=== PATIENT | female | born 1945 | race Caucasian/White ===

== ENCOUNTER 2022-11-12 13:15 | Inpatient (IN) | payer MEDICARE, OTHER ==
[~2022-11-12] VITALS: Ht 157 cm; Wt 62.1 kg
[2022-11-12] MEDS ORDERED: fentaNYL INJ 100 MCG/2 ML AMP IVP STA (13:56)
[2022-11-12] MEDS ORDERED: ONDANSETRON 4 MG/2 ML (SDV) Z0FRAN IVP ONE (14:00)
[2022-11-12] MEDS ORDERED: NS IV 500 ML 500 ML IV ONE (14:00)
--- NOTE | 2022-11-12 14:09 | ED General ---
General Chief Complaint: - Reproductive Stated Complaint: UNABLE TO URINATE Nursing Triage Note: pt presents to ed via pov from home with complaints of posterior back/flank pain x 2 days. pt reports she feels like her bladder is full but she is unable to urinate. 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 Source of Information: Patient Exam Limitations: No Limitations History of Present Illness Date Seen by Provider: Nov 12, 2022 Time Seen by Provider: 13:30 Initial Comments Here with report of difficulty with urination. She wears adult briefs due to incontinence. Noted that she had little dribbles of urine over the past 2 days but not much else. Does have history of kidney disease. Apparently she went to [facility] ER this morning and had waited several hours without help and so left there and came here. She denies fever. Reports that she has drink at least 4 to 6 cups water today. States that she feels like her bladder is very full but she cannot urinate. Does have history of rectal cancer with surgical removal of her entire colon and ileostomy placed right side mid abdomen. No report of fevers. She is concerned about the kidney disease and is ins ignificant pain to the low abdomen in the suprapubic region. Timing/Duration: 2-3 Days Severity: Moderate, Severe Associated Systoms: No Chest Pain, No Cough, No Fever/Chills; Nausea/Vomiting; No Shortness of Air, No Weakness Allergies and Home Medications Allergies Coded Allergies: No Known Drug Allergies (Unverified , 11/12/22) Patient Home Medication List Home Medication List Reviewed: Yes Review of Systems Review of Systems Constitutional: see HPI; No chills, No fever EENTM: no symptoms reported Respiratory: No cough, No short of breath Cardiovascular: No chest pain, No palpitations Gastrointestinal: abdominal pain, nausea, vomiting Genitourinary: decreased output, pain Musculoskeletal: back pain; No muscle pain Skin: No lesions, No rash Past Ahersli-Bsukzj-Dadqox Hx Patient Social History Tobacco Use?: No Substance use?: No Alcohol Use?: No Pt feels they are or have been: No Past Medical History Surgery/Hospitalization HX: pmh:hypothyroid, kidney failure, osteopenia, stage 3 kidney disease, ileostomy-colon ca Surgeries: Yes Abdominal, Appendectomy, Gallbladder, Hysterectomy, Oophorectomy Respiratory: No Cardiac: Yes Genitourinary: Yes Renal Failure Endocrine: Yes Hypothyroidsim, Diabetes, Non-Insulin dep Family Medical History No Pertinent Family Hx Physical Exam Vital Signs Vital Signs - First Documented 11/12/22 13:28 Temp 35.6 Pulse 88 Resp 18 B/P (MAP) 113/91 (98) Pulse Ox 96 Capillary Refill : Less Than 3 Seconds Height, Weight, BMI Height: '" Weight: lbs. oz. kg; 24.00 BMI Method: General Appearance: WD/WN, Mild Distress HEENT: PERRL/EOMI, Pharynx Normal Neck: Non Tender, Supple Respiratory: Lungs Clear, Normal Breath Sounds Cardiovascular: Regular Rate, Rhythm Gastrointestinal: Soft, Distended (Suprapubic); No Guarding, No Rebound; Tenderness (Suprapubic region and very tight there.) Back: Normal Inspection, No CVA Tenderness, No Vertebral Tenderness Extremity: Normal Range of Motion, Non Tender, Pedal Edema (1-2+ to mid tibia bilateral) Neurologic/Psychiatric: Alert, Oriented x3 Skin: Normal Color, Warm/Dry Focused Exam Lactate Level 11/12/22 14:06: Lactic Acid Level 2.78*H Lactic Acid Level Laboratory Tests Test 11/12/22 14:06 Lactic Acid Level 2.78 MMOL/L (0.50-2.00) *H Progress/Results/Core Measures Suspected Sepsis SIRS Temperature: Pulse: 88 Respiratory Rate: 18 Laboratory Tests 11/12/22 14:06: White Blood Count 15.3H Blood Pressure 113 /91 Mean: 98 11/12/22 14:06: Lactic Acid Level 2.78*H Laboratory Tests 11/12/22 14:06: Platelet Count 185 11/12/22 14:36: Creatinine 1.93H, Total Bilirubin 0.8 Results/Orders Lab Results Laboratory Tests Test 11/12/22 13:40 11/12/22 14:06 11/12/22 14:36 Range/Units Urine Color YELLOW Urine Clarity CLEAR Urine pH 6.0 5-9 Urine Specific [place] >=1.030 1.016-1.022 Urine Protein 2+ H NEGATIVE Urine Glucose (UA) 1+ H NEGATIVE Urine Ketones NEGATIVE NEGATIVE Urine Nitrite NEGATIVE NEGATIVE Urine Bilirubin NEGATIVE NEGATIVE Urine Urobilinogen 0.2 < = 1.0 MG/DL Urine Leukocyte Esterase TRACE H NEGATIVE Urine RBC (Auto) 2+ H NEGATIVE Urine RBC 0-2 /HPF Urine WBC 10-25 H /HPF Urine Crystals NONE /LPF Urine Bacteria FEW H /HPF Urine Casts NONE /LPF Urine Mucus NEGATIVE /LPF Urine Culture Indicated YES White Blood Count 15.3 H 4.3-11.0 10^3/uL Red Blood Count 3.92 3.80-5.11 10^6/uL Hemoglobin 12.0 11.5-16.0 g/dL Hematocrit 35 35-52 % Mean Corpuscular Volume 90 80-99 fL Mean Corpuscular Hemoglobin 31 25-34 pg Mean Corpuscular Hemoglobin Concent 34 32-36 g/dL Red Cell Distribution Width 13.2 10.0-14.5 % Platelet Count 185 130-400 10^3/uL Mean Platelet Volume 11.2 9.0-12.2 fL Immature Granulocyte % (Auto) 2 % Neutrophils (%) (Auto) 71 42-75 % Lymphocytes (%) (Auto) 15 12-44 % Monocytes (%) (Auto) 12 0-12 % Eosinophils (%) (Auto) 0 0-10 % Basophils (%) (Auto) 0 0-10 % Neutrophils # (Auto) 10.8 H 1.8-7.8 X 10^3 Lymphocytes # (Auto) 2.3 1.0-4.0 X 10^3 Monocytes # (Auto) 1.8 H 0.0-1.0 X 10^3 Eosinophils # (Auto) 0.1 0.0-0.3 10^3/uL Basophils # (Auto) 0.1 0.0-0.1 10^3/uL Immature Granulocyte # (Auto) 0.3 H 0.0-0.1 10^3/uL Neutrophils % (Manual) 76 % Lymphocytes % (Manual) 16 % Monocytes % (Manual) 3 % Eosinophils % (Manual) 0 % Basophils % (Manual) 0 % Myelocytes % 2 % Band Neutrophils 3 % Blood Morphology Comment NORMAL Lactic Acid Level 2.78 *H 0.50-2.00 MMOL/L Sodium Level 134 L 135-145 MMOL/L Potassium Level 3.7 3.6-5.0 MMOL/L Chloride Level 105 98-107 MMOL/L Carbon Dioxide Level 13 L 21-32 MMOL/L Anion Gap 16 H 5-14 MMOL/L Blood Urea Nitrogen 35 H 7-18 MG/DL Creatinine 1.93 H 0.60-1.30 MG/DL Estimat Glomerular Filtration Rate 27 BUN/Creatinine Ratio 18 Glucose Level 118 H 70-105 MG/DL Calcium Level 9.2 8.5-10.1 MG/DL Corrected Calcium 9.4 8.5-10.1 MG/DL Total Bilirubin 0.8 0.1-1.0 MG/DL Aspartate Amino Transf (AST/SGOT) 25 5-34 U/L Alanine Aminotransferase (ALT/SGPT) 19 0-55 U/L Alkaline Phosphatase 134 40-136 U/L C-Reactive Protein High Sensitivity 17.41 H 0.00-0.50 MG/DL Total Protein 6.9 6.4-8.2 GM/DL Albumin 3.7 3.2-4.5 GM/DL My Orders Orders - VLAD MCLAUGHLIN MD Cbc With Automated Diff (11/12/22 13:56) Comprehensive Metabolic Panel (11/12/22 13:56) Hs C Reactive Protein (11/12/22 13:56) Lactic Acid Analyzer (11/12/22 13:56) Ua Culture If Indicated (11/12/22 13:56) Ed Iv/Invasive Line Start (11/12/22 13:56) Ns Iv 500 Ml (Sodium Chloride 0.9%) (11/12/22 14:00) Fentanyl Inj (Sublimaze Injection) (11/12/22 13:56) Ondansetron Injection (Zofran Injectio (11/12/22 14:00) Blood Culture (11/12/22 13:56) Vital Signs Adult Sepsis Patie Q15M (11/12/22 13:56) Remove Rings In Anticipation O (11/12/22 13:56) Manual Differential (11/12/22 14:06) Urine Culture (11/12/22 13:40) Ceftriaxone Iv/Im (Rocephin Iv/Im) (11/12/22 15:31) Medications Given in ED Current Medications Medications Dose Ordered Sig/Yuly Route Start Time Stop Time Status Last Admin Dose Admin Ondansetron HCl 4 mg ONCE ONCE IVP 11/12/22 14:00 11/12/22 14:01 DC 11/12/22 14:08 4 MG Sodium Chloride 500 ml @ 0 mls/hr Q0M ONCE IV 11/12/22 14:00 11/12/22 14:01 DC 11/12/22 14:08 0 MLS/HR Vital Signs/I&O 11/12/22 13:28 Temp 35.6 Pulse 88 Resp 18 B/P (MAP) 113/91 (98) Pulse Ox 96 Capillary Refill : Less Than 3 Seconds Blood Pressure Mean: 98 Progress Note : Progress Note Seen and evaluated. IV, labs including CBC, CMP, CRP, blood cultures and lactic acid ordered. UA ordered. Normal saline 500 mL bolus, fentanyl 50 mcg IV for pain and Zofran 4 mg IV ordered for pain. Monitor patient. Differential diagnosis includes urinary retention, urinary tract infection, renal failure, electrolyte abnormality, dehydration, intra-abdominal pathology Agarwal catheter placed by nursing. We only got about 10 to 20 mL of output raising concerns for renal failure. Pending labs. Monitor patient. 1535: Patient does have findings concerning for urinary tract infection with sepsis as her white count is 15.3 with 3 bands. CRP is elevated at 17.41. Chemistries show essentially normal electrolytes but elevated serum creatinine with known history of chronic renal dysfunction. Lactic acid is elevated at 2.78 and UA does show findings of urinary tract infection with WBCs and bacteria with trace leuk esterase. No nitrites. She is currently feeling better and is able to take p.o. fluids. I do have concerns secondary to her chronic renal dysfunction and urinary tract infection and the lactic acidosis. Given all of that, admission is indicated. I did discuss the case with Dr. Aguiar, on-call for [facility], and he accepts patient for admission, inpatient status. Rocephin 1 g IV ordered for treatment of urinary tract infection with sepsis. All findings and concerns discussed with patient and family who agree with plan. Departure Communication (Admissions) Time/Spoke to Admitting Phy: 15:35 Impression Primary Impression: Urinary tract infection Qualified Codes: N30.00 - Acute cystitis without hematuria Additional Impressions: Sepsis Qualified Codes: A41.9 - Sepsis, unspecified organism Chronic renal insufficiency Qualified Codes: N18.9 - Chronic kidney disease, unspecified Disposition: ADMITTED INPATIENT Condition: Stable Admissions Decision to Admit Reason: Admit from ER (General) Decision to Admit/Date: Nov 12, 2022 Time/Decision to Admit Time: 15:35 Departure-Patient Inst. Referrals: UNKNOWN (PCP/Family) Primary Care Physician VLAD MCLAUGHLIN MD Nov 12, 2022 14:09
[2022-11-12 14:11] LABS: BASOPHILS # (AUTO) 0.1 10^3/uL (0.0-0.1); BASOPHILS % (AUTO) 0 % (0-10); EOSINOPHILS # (AUTO) 0.1 10^3/uL (0.0-0.3); EOSINOPHILS % (AUTO) 0 % (0-10); HEMATOCRIT 35 % (35-52); LYMPHOCYTES # (AUTO) 2.3 X 10^3 (1.0-4.0); LYMPHOCYTES % (AUTO) 15 % (12-44); MEAN CORPUSCULAR HEMOGLOBIN 31 pg (25-34); MEAN CORPUSCULAR HGB CONC 34 g/dL (32-36); MEAN CORPUSCULAR VOLUME 90 fL (80-99); MEAN PLATELET VOLUME 11.2 fL (9.0-12.2); MONOCYTES # (AUTO) 1.8 X 10^3 (0.0-1.0); MONOCYTES % (AUTO) 12 % (0-12); NEUTROPHILS # (AUTO) 10.8 X 10^3 (1.8-7.8); NEUTROPHILS % (AUTO) 71 % (42-75); PLATELET COUNT 185 10^3/uL (130-400); WHITE BLOOD COUNT 15.3 10^3/uL (4.3-11.0)
[2022-11-12 14:26] LABS: BILIRUBIN,URINE NEGATIVE (NEGATIVE); CLARITY,URINE CLEAR; COLOR,URINE YELLOW; GLUCOSE, URINE (UA) 1+ (NEGATIVE); KETONES,URINE NEGATIVE (NEGATIVE); LEUKOCYTE ESTERASE ,URINE TRACE (NEGATIVE); NITRITE,URINE NEGATIVE (NEGATIVE); PROTEIN,URINE 2+ (NEGATIVE)
[2022-11-12 14:39] LABS: BACTERIA,URINE FEW /HPF; RBC,URINE 0-2 /HPF
[2022-11-12 14:49] LABS: BAND NEUTROPHILS 3 %; BASOPHILS % (MANUAL) 0 %; EOSINOPHILS % (MANUAL) 0 %; LYMPHOCYTES % (MANUAL) 16 %; MONOCYTES % (MANUAL) 3 %; MYELOCYTES % 2 %; NEUTROPHILS % (MANUAL) 76 %; RBC MORPH NORMAL
[2022-11-12 14:55] LABS: ALBUMIN 3.7 GM/DL (3.2-4.5); POTASSIUM 3.7 MMOL/L (3.6-5.0)
[2022-11-12 14:56] LABS: CALCIUM 9.2 MG/DL (8.5-10.1)
[2022-11-12 14:57] LABS: TOTAL PROTEIN 6.9 GM/DL (6.4-8.2)
[2022-11-12 14:59] LABS: BILIRUBIN,TOTAL 0.8 MG/DL (0.1-1.0)
[2022-11-12 15:01] LABS: CREATININE SERUM 1.93 MG/DL (0.60-1.30)
[2022-11-12] MEDS ORDERED: cefTRIAXone IV/IM 1,000 MG in NS (IVPB) 50 ML IV STA (15:31)
[2022-11-12] MEDS ORDERED: fentaNYL INJ 100 MCG/2 ML AMP IV PRN (17:00)
[2022-11-12] MEDS ORDERED: ONDANSETRON 4 MG/2 ML (SDV) Z0FRAN IV PRN (17:00)
[2022-11-12] MEDS ORDERED: cefTRIAXone 1 GM/NS 50 ML IVPB IV SCH ×2 (17:00)
[2022-11-12] MEDS ORDERED: ACETAMINOPHEN 500 MG TAB (TYLENOL) PO PRN (17:00)
[2022-11-12] MEDS ORDERED: ROSU10TA28 PO (17:38)
[2022-11-12] MEDS ORDERED: ASPI-999 PO (17:38)
[2022-11-12] MEDS ORDERED: LEVO100T7 PO (17:38)
[2022-11-12] MEDS ORDERED: DAPA10TA PO (17:38)
[2022-11-12] MEDS ORDERED: MIRT-68 PO (17:39)
[2022-11-12] MEDS ORDERED: TRZ50T PO (17:39)
[2022-11-12] MEDS ORDERED: DIAZ10TA3 PO (17:39)
[2022-11-12] MEDS: NS IV 1000 ML 1,000 ML IV SCH (17:43)
[2022-11-12 20:59] VITALS: BP 120/67
[2022-11-12] MEDS ORDERED: MELATONIN 3 MG TABLET PO SCH (21:00)
[2022-11-12 23:17] VITALS: BP 118/55
[2022-11-13 03:58] VITALS: BP 116/56
[2022-11-13] MEDS: NS IV 1000 ML 1,000 ML IV SCH (05:34)
[2022-11-13 05:51] LABS: BASOPHILS % (AUTO) 0 % (0-10); EOSINOPHILS # (AUTO) 0.2 10^3/uL (0.0-0.3); EOSINOPHILS % (AUTO) 1 % (0-10); HEMATOCRIT 27 % (35-52); HEMOGLOBIN 9.2 g/dL (11.5-16.0); LYMPHOCYTES # (AUTO) 1.3 10^3/uL (1.0-4.0); LYMPHOCYTES % (AUTO) 13 % (12-44); MEAN CORPUSCULAR HEMOGLOBIN 31 pg (25-34); MEAN CORPUSCULAR HGB CONC 34 g/dL (32-36); MEAN CORPUSCULAR VOLUME 91 fL (80-99); MONOCYTES # (AUTO) 1.4 10^3/uL (0.0-1.0); MONOCYTES % (AUTO) 14 % (0-12); NEUTROPHILS # (AUTO) 7.4 10^3/uL (1.8-7.8); NEUTROPHILS % (AUTO) 71 % (42-75); PLATELET COUNT 152 10^3/uL (130-400); WHITE BLOOD COUNT 10.5 10^3/uL (4.3-11.0)
[2022-11-13 06:14] LABS: BILIRUBIN,DIRECT 0.3 MG/DL (0.0-0.3); BILIRUBIN,INDIRECT 0.2 MG/DL; BILIRUBIN,TOTAL 0.5 MG/DL (0.1-1.0); CALCIUM 8.4 MG/DL (8.5-10.1); CREATININE SERUM 1.48 MG/DL (0.60-1.30); POTASSIUM 3.6 MMOL/L (3.6-5.0); TOTAL PROTEIN 5.7 GM/DL (6.4-8.2)
[2022-11-13 07:29] VITALS: BP 122/60
[2022-11-13] MEDS ORDERED: CEFD300C3 PO (10:43)
--- NOTE | 2022-11-13 10:51 | Occupational Therapy Eval ---
OT Evaluation-General/PLF Medical Diagnosis Admission Date Nov 12, 2022 at 16:26 Medical Diagnosis: UTI/Sepsis Onset Date: Nov 12, 2022 Therapy Diagnosis Therapy Diagnosis: weakness Precautions Precautions/Isolations: Fall Prevention, Standard Precautions Weight Bear Status Weight Bearing Restriction: Full Weight Bearing Referral Referral Reason: Activity Tolerance, Self Care, Evaluation/Treatment, Strengthening/ROM Medical History Current History Here with report of difficulty with urination. She wears adult briefs due to incontinence. Noted that she had little dribbles of urine over the past 2 days but not much else. Does have history of kidney disease. Apparently she went to [facility] ER this morning and had waited several hours without help and so left there and came here. She denies fever. Reports that she has drink at least 4 to 6 cups water today. States that she feels like her bladder is very full but she cannot urinate. Does have history of rectal cancer with surgical removal of her entire colon and ileostomy placed right side mid abdomen. No report of fevers. She is concerned about the kidney disease and is i nsignificant pain to the low abdomen in the suprapubic region Social History Home: Single Level Current Living Status: Spouse Entry Into Home: Stairs With Railing ADL-Prior Level of Function SCALE: Activities may be completed with or without assistive devices. 5-Ebshvuebha-emopgsu completes the activity by him/herself with no assistance from a helper. 5-Set-up or Clean-up Assistance-helper sets up or cleans up; patient completes activity. [place] assists only prior to or following the activity. 4-Supervision or Touching Assistance-helper provides verbal cues and/or touching/steadying and/or contact guard assistance as patient completes activit y. Assistance may be provided throughout the activity or intermittently. 3-Partial/Moderate Assistance-helper does LESS THAN HALF the effort. [place] lifts, holds or supports trunk or limbs, but provides less than half the effort. 2-Substantial/Maximal Assistance-helper does MORE THAN HALF the effort. [place] lifts or holds trunk or limbs and provides more than half the effort. 4-Hmjlnyhxq-rfpkpr does ALL the effort. Patient does none of the effort to complete the activity. Or, the assistance of 2 or more helpers is required for the patient to complete the activity. If activity was not attempted, code reason: 7-Patient Refused. 9-Not Applicable-not attempted and the patient did not perform the activity before the current illness, exacerbation or injury. 10-Not Attempted due to Environmental Limitations-(lack of equipment, weather restraints, etc.). 88-Not Attempted due to Medical Conditions or Safety Concerns. 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 Drive Self: Yes OT Current Status Subjective Agreeable to therapy, eager to go home Pain Numeric Pain Scale: 0-No Pain Mental Status/Objective Patient Orientation: Person, Place, Time, Situation Attachments: IV (patient request Therapy remove IV, therapy reports nursing will address IV) Current Glasses/Contacts: Yes Upper Extremity ROM LUE old injury limited ROM, spouse reports he pulls on patient to assist her out of bed at home, OT provided safe instruction for out of bed and entry to reduce pain and reduce injury.spouse and patient are minimally receptive to education Upper Extremity Strength RUE -4/5, LUE -3/5 ADL-Treatment Eating (QC): 6 Oral Hygiene (QC): 6 Shower/Bathe Self (QC): 7 (declined) Upper Body Dressing (QC): 6 Lower Body Dressing (QC): 5 On/Off Footwear (QC): 5 Toileting Hygiene (QC): 6 Patient and spouse report assistance to transfer in /out of shower, ambulation assistance on outdoor ground Education OT Patient Education: Energy conservation, Instructions to caregiver, Modified ADL techniques, Progress toward Goal/Update tx plan, Purpose of tx/functional activities, Reviewed precautions, Rehab process, Safety issues, Transfer techniques, Use of adapted equipment Teaching Recipient: Patient, Family Teaching Methods: Demonstration, Discussion Response to Teaching: Verbalize Understanding (however does not receive information and education well), Reinforcement Needed OT Senior Living Goals Senior Living Goals 1=Demonstrate adherence to instructed precautions during ADL tasks. 2=Patient will verbalize/demonstrate understanding of assistive devices/modifications for ADL. 3=Patient will improve strength/tolerance for activity to enable patient to perform ADL's. OT Education/Plan Problem List/Assessment Assessment: Decreased UE Strength, Impaired Self-Care Skills, Restricted Funct UE ROM Discharge Recommendations Plan/Recommendations: Discontinue OT Therapy Discharge Recommendati: Other, See Comments (EVAL ONLY) Patient/Family Goals Patient wishes to expedite DC home. Treatment Plan/Plan of Care Treatment,Training & Education: Yes Patient would benefit from OT for education, treatment and training to promote independence in ADL's, mobility, safety and/or upper extremity function for ADL's. Plan of Care: OTHER (EVAL ONLY) Treatment Duration: Nov 13, 2022 Frequency: 1 time per week Estimated Hrs Per Day: .25 hour per day Time Start Time: 10:20 Stop Time: 10:43 DATE: Nov 13, 2022 Total Time Billed (hr/min): 23 Billed Treatment Time RICHARD, FA 23 min ELENI NEWMAN OT Nov 13, 2022 10:51
[2022-11-13] MEDS ORDERED: MELA5TAB14 PO (10:53)
[2022-11-13] MEDS ORDERED: FLUO40CA PO (10:53)
[2022-11-13] MEDS ORDERED: FLUT16SP22 NSEACH (10:53)
[2022-11-13] MEDS ORDERED: ENOXAPARIN 40 MG/0.4 ML (LOVENOX) SYR SC SCH (11:00)
[2022-11-13 11:14] VITALS: BP 141/64
--- NOTE | 2022-11-13 11:27 | Physical Therapy Evaluation ---
PT Evaluation-General Medical Diagnosis Admission Date Nov 12, 2022 at 16:26 Medical Diagnosis: UTI/sepsis Onset Date: Nov 12, 2022 Therapy Diagnosis Therapy Diagnosis: debility/weakness Precautions Precautions/Isolations: Fall Prevention, Standard Precautions Referral Physician: Mario Reason for Referral: Evaluation/Treatment Medical History Pertinent Medical History: DM, Hypothroidism, Renal Insufficiency Additional Medical History rectal cancer Current History ER secondary to right flank and back pain x 2 days Reviewed History: Yes Social History Home: Single Level Current Living Status: Spouse Entry Into Home: Stairs With Railing PT Steps Into Home: 3 Prior Prior Level of Function SCALE: Activities may be completed with or without assistive devices. 6-Thhrokzohk-nvtuttf completes the activity by him/herself with no assistance from a helper. 5-Set-up or Clean-up Assistance-helper sets up or cleans up; patient completes activity. [place] assists only prior to or following the activity. 4-Supervision or Touching Assistance-helper provides verbal cues and/or touching/steadying and/or contact guard assistance as patient completes activity. Assistance may be provided throughout the activity or intermittently. 3-Partial/Moderate Assistance-helper does LESS THAN HALF the effort. [place] lifts, holds or supports trunk or limbs, but provides less than half the effort. 2-Substantial/Maximal Assistance-helper does MORE THAN HALF the effort. [place] lifts or holds trunk or limbs and provides more than half the effort. 7-Wwurmgvsu-kkzmui does ALL the effort. Patient does none of the effort to complete the activity. Or, the assistance of 2 or more helpers is required for the patient to complete the activity. If activity was not attempted, code reason: 7-Patient Refused. 9-Not Applicable-not attempted and the patient did not perform the activity before the current illness, exacerbation or injury. 10-Not Attempted due to Environmental Limitations-(lack of equipment, weather restraints, etc.). 88-Not Attempted due to Medical Conditions or Safety Concerns. Bed Mobility: 3 Transfers (B,C,W/C): 4 Gait: 4 Stairs: 4 Indoor Mobility (Ambulation): Needed Some Help Prior Devices Use: Walker PT Evaluation-Current Subjective Patient agrees to PT. Spouse present. Objective Patient Orientation: Person, Time, Situation ROM/Strength ROM Lower Extremities bilateral LE all planes Strength Lower Extremities 3/5 grossly bilateral LE Integumentary/Posture Bowel Incontinence: No Bladder Incontinence: No Posture WFL Neuromuscular (Tone, Coordination, Reflexes) grossly intact Sensory Vision: Wears Glasses Transfers Lying to Sitting/Side of Bed(Q: 3 Sit to Stand (QC): 3 Chair/Wbs-ou-Iaaus Xfer(QC): 3 Gait Mode of Locomotion: Walk Anticipated Mode of Locomotion: Walk Walk 10 feet (QC): 4 Walk 50 ft with 2 Turns(QC): 4 Walk 150 ft (QC): 4 Distance: 300' Gait Assistive Device: FWW Comments/Gait Description CGA for safety Balance Sitting Static: Normal Sitting Dynamic: Normal Standing Static: Fair Standing Dynamic: Fair Assessment/Needs Patient will benefit from skilled PT to address functional strength and mobility to improve current LOF to safely return to home with spouse assist. Patient currently requires CGA for safety with all mobility. Rehab Potential: Fair PT Nursing Home Goals Crimper Assembler Goals PT Crimper Assembler Goals Time Frame: Nov 25, 2022 Roll Left & Right (QC): 4 Sit to Lying (QC): 4 Lying-Sitting on Side/Bed(QC): 4 Sit to Stand (QC): 4 Chair/Gte-nj-Bfdjk Xfer(QC): 4 Toilet Transfer (QC): 4 Walk 10 feet (QC): 4 Walk 50ft with 2 Turns (QC): 4 Walk 150 ft (QC): 4 PT Plan Problem List Problem List: Activity Tolerance, Functional Strength, Safety, Balance, Gait, Transfer, Bed Mobility Treatment/Plan Treatment Plan: Continue Plan of Care Treatment Plan: Bed Mobility, Education, Functional Activity Arely, Functional Strength, Gait, Safety, Therapeutic Exercise, Transfers Treatment Duration: Nov 25, 2022 Frequency: 6 times per week Estimated Hrs Per Day: .25 hour per day Patient and/or Family Agrees t: Yes Time Time In: 1055 Time Out: 1105 DATE: Nov 13, 2022 Total Billed Treatment Time: 10 Total Billed Treatment 1 visit EVModC 10 min CYNTHIA HOGAN PT Nov 13, 2022 11:27
--- NOTE | 2022-11-13 11:32 | Short Stay Summary-Hospitalist ---
MITALI DURAN 11/13/22 1132: History of Present Illness HPI/Chief Complaint This patient is a 77 year old female with medical history significant for CKD stage 3, DM type 2, osteopenia, hypothyroidism, and Hx of colon cancer w/ total colectomy and ileostomy who presented to the ED 11/12 for suprapubic pain and difficulty urinating. This had been ongoing for 2 days prior to presenting to the ED. In the ED she met severe sepsis criteria with leukocytosis (15.3), Lactic Acidosis (2.78), Cr 1.93, Urinalysis significna tfor Leuk's, RBC, WBC, and few bacteria. A patel catheter was placed and Ceftriaxone 1g IV Q24 was initiated and patient was admitted to the hospital. When seen this morning, her condition had improved signicantly. Her leukocytosis and Lactic acidosis had resolved. Her Cr had improved to 1.48 from 1.93. Cultures are pending. The pat ient reports feeling well and denies suprapubic pain. She was eager to get the catheter removed today. Source: patient Exam Limitations: no limitations Date Seen 11/13/22 Time Seen by a Provider: 08:25 Attending Physician No,Local Physician PCP Admitting Physician: Valdo Aguiar MD Attending Physician: Sanjeev Reilly DO Referring Physician Date of Admission Nov 12, 2022 at 16:26 Home Medications & Allergies Home Medications Reviewed patient Home Medication Reconciliation performed by pharmacy medication reconciliations sound technician supervisor and/or nursing. Patients Allergies have been reviewed. Allergies Allergies Coded Allergies No Known Drug Allergies (Unverified11/12/22) Past Medical/Social/Family Hx Patient Social History Marrital Status: Tobacco Use?: No Substance use?: No Alcohol Use?: No Pt stated abuse/neglect: No Immunizations Up To Date Influenza Vaccine Up-to-Date: Yes; Up-to-Date Current Status status: No Advance Directives: No Communicates: Verbally Primary Language: Mozambican Preferred Spoken Language: Mozambican Is interpretation needed?: No Implanted or Applied Medical D: Orthopedic hardware (Right shoulder and hip) Past Medical History Hypothyroidism, CKD Stage 3, Hx Colon cancer post colectomy and ileostomy, ostepenia, DM type 2 Family Medical History Family Hx: No pertinent family history Review of Systems Constitutional: No chills, No fever EENTM: no symptoms reported Respiratory: No cough, No dyspnea on exertion Cardiovascular: No chest pain, No palpitations Gastrointestinal: other (Suprapubic pain improved) Genitourinary: decreased output, dysuria : No Musculoskeletal: back pain Skin: no symptoms reported Psychiatric/Neurological: No Symptoms Reported Physical Exam Physical Exam Vital Signs Vital Signs - First Documented 11/12/22 11/12/22 13:28 19:34 Temp 35.6 Pulse 88 Resp 18 B/P (MAP) 113/91 (98) Pulse Ox 96 O2 Delivery Room Air Capillary Refill : Less Than 3 Seconds Height, Weight, BMI Height: '" Weight: lbs. oz. kg; 25.19 BMI Method: General Appearance: WD/WN, Mild Distress HEENT: PERRL/EOMI, Pharynx Normal Neck: Non Tender, Supple Respiratory: Lungs Clear, Normal Breath Sounds Cardiovascular: Regular Rate, Rhythm, No Murmur, Normal Peripheral Pulses Gastrointestinal: Soft; No Distended, No Rebound; Tenderness (mild suprapubic tenderness) Back: Normal Inspection, No CVA Tenderness, No Vertebral Tenderness Extremity: Normal Range of Motion, Non Tender, Pedal Edema (1-2+ to mid tibia bilateral) Neurologic/Psychiatric: Alert, Oriented x3 Skin: Normal Color, Warm/Dry Results Results/Procedures Labs Laboratory Tests 11/12/22 14:06 11/12/22 14:36 11/13/22 05:30 Patient resulted labs reviewed. Short Stay Diagnosis Discharge Diagnosis-Short Stay Admission Diagnosis Severe Sepsis Second to UTI Final Discharge Diagnosis Severe Sepsis 2nd to UTI DM type 2 Hx colon cancer w/ ilesostomy s/p total colectomy Hypothyroidism Depression Anxiety Conclusion Plan -Will convert Ceftriaxone to oral abx to take in the outpatient setting. Remove catheter. -Continue home medications -Follow up with PCP. nd notify them if symptoms fail to improve or acutely worsen despite abx. SANJEEV REILLY DO 11/14/22 0456: Past Medical/Social/Family Hx Patient Social History Marrital Status: Employed/Student: retired Review of Systems Constitutional: see HPI Physical Exam Physical Exam General Appearance: No Apparent Distress, WD/WN, Anxious Eyes: Bilateral Eye Normal Inspection, Bilateral Eye PERRL HEENT: PERRL/EOMI, Normal ENT Inspection, Pharynx Normal Neck: Full Range of Motion, Normal Inspection, Non Tender, Supple, Carotid Bruit Respiratory: Chest Non Tender, Lungs Clear, Normal Breath Sounds, No Accessory Muscle Use, No Respiratory Distress Cardiovascular: Regular Rate, Rhythm, No Edema, No Gallop, No JVD, No Murmur, Normal Peripheral Pulses Gastrointestinal: Normal Bowel Sounds, No Organomegaly, No Pulsatile Mass, Non Tender, Soft Back: Normal Inspection, No CVA Tenderness, No Vertebral Tenderness Extremity: Normal Capillary Refill, Normal Inspection, Normal Range of Motion, Non Tender, No Calf Tenderness, No Pedal Edema Neurologic/Psychiatric: Alert, Oriented x3, No Motor/Sensory Deficits, Normal Mood/Affect Skin: Normal Color, Warm/Dry Lymphatic: No Adenopathy Supervisory-Addendum Brief Verification & Attestation Participated in pt care: history, MDM, physical Personally performed: exam, history, MDM, supervision of care Care discussed with: Medical Student Procedures: n/a Results interpretation: Verified all documentation Verification and Attestation of Medical Student E/M Service A medical student performed and documented this service in my presence. I reviewed and verified all information documented by the medical student and made modifications to such information, when appropriate. I personally performed the physical exam and medical decision making. Sanjeev Reilly Nov 14, 2022,04:55 MITALI DURAN Nov 13, 2022 11:32 SANJEEV REILLY DO Nov 14, 2022 04:56
[2022-11-13 12:30] VITALS: BP 141/64
== END 2022-11-13 12:30 | disposition home or self-care (01) | DRG 872 ==
LOC: EDUNIT# 13:15 → ER 13:18 → 4TH 16:26
PROVIDERS: ADMIT Internal Medicine; ATTEND Internal Medicine
DX: A41.9 Sepsis, unspecified organism (principal); N39.0 Urinary tract infection, site not specified; R65.20 Severe sepsis without septic shock; E11.22 Type 2 diabetes mellitus with diabetic chronic kidney disease; Z85.038 Personal history of other malignant neoplasm of large intestine; Z90.49 Acquired absence of other specified parts of digestive tract; E03.9 Hypothyroidism, unspecified; F41.9 Anxiety disorder, unspecified; F32.A Depression, unspecified; Z93.2 Ileostomy status; N18.30 Chronic kidney disease, stage 3 unspecified
CPT/HCPCS: 36415; 80048; 80053; 80076; 81000; 83605; 85007; 85025; 85027; 86141; 87040; 87077; 87088; 87186

== ENCOUNTER → 2023-01-29 | Outpatient (CLI) | payer MEDICARE, OTHER ==
[~2023-01-29] MED LIST: ASPI-999 PO; CEFD300C3 PO; DAPA10TA PO; DIAZ10TA3 PO; FLUO40CA PO; FLUT16SP22 NSEACH; LEVO100T7 PO; MELA5TAB14 PO; MIRT-68 PO; ROSU10TA28 PO; TRZ50T PO
--- NOTE | 2023-01-29 11:05 | Diagnostic Imaging Report ---
PROCEDURE: US Renal Bilateral. TECHNIQUE: Multiple real-time grayscale images were obtained over the kidneys in various projections bilaterally. INDICATION: Acute renal failure COMPARISON: None. FINDINGS: Both kidneys are normal in size and echogenicity. The right kidney measures 8.9 cm in length and the left is 9.3 cm. The cortical thickness and the cortical medullary differentiation is well maintained. There is no evidence of calculi, focal mass or hydronephrosis. Urinary bladder cannot be adequately visualized. There is no ascites. IMPRESSION: 1. Normal renal sonogram. 2. Urinary bladder is not visualized. Dictated by: Dictated on workstation # [id number]
== END ==
LOC: RAD 08:50
PROVIDERS: ATTEND Internal Medicine Nephrology
DX: N17.9 Acute kidney failure, unspecified (principal); N18.32 Chronic kidney disease, stage 3b
CPT/HCPCS: 76770